=== PATIENT | male | born 1945 | race Caucasian/White ===

== ENCOUNTER → 2016-08-29 | Outpatient (CLI) | payer MEDICARE, BC ==
[~2016-08-29] MED LIST: ALBUTEROL1.25 MG/3 IH; ASPIRIN 32325 MG/TAB PO; ASPIRIN 81M81 MG/TA2 PO; CENTRUM SILVER1 TAB PO; CLARITIN 1010 MG/TAB PO; DEPAKOTE500 MG PO; EFFEXOR 75M75 MG/TAB PO; EXELON13.3TDM; FENTANYL 100MCG TD; FENTANYL 50MCG TD; FLOMAX 0.40.4 MG/CAP PO; GENTLE LAXATIVE5 MG PO; MIRALAX PA17 GM/Dose PO; MULTI VITAMINS1 TAB PO; NAMENDA 10MG TA10 MG PO; PERCOCET 325 MG1 TA2 PO; PRILOSEC 20MG20 MG PO; PROTONIX 40MG T40 MG PO; PROVENTIL0.09 MG/A1 IH; RESTASIS 60VL; RESTASIS 60VL OP; SEROQUEL 2525 MG/TAB PO; TYLENOL 325MG325 MG PO; ULTRAM 50MG TAB50 MG; XANAX 1MG1 MG PO; ZOCOR 40MG40 MG PO
== END ==
LOC: BHSO 16:21
DX: F33.41 Major depressive disorder, recurrent, in partial remission (principal)

== ENCOUNTER → 2016-10-25 | Outpatient (CLI) | payer MEDICARE, BC | LOC: BHSO 14:18 | DX: F33.1 Major depressive disorder, recurrent, moderate (principal) ==

== ENCOUNTER → 2016-12-28 | Outpatient (CLI) | payer MEDICARE, BC | LOC: BHSO 14:41 | DX: F33.1 Major depressive disorder, recurrent, moderate (principal) ==

== ENCOUNTER → 2017-02-09 | Outpatient (REF) ==
[2017-02-09 18:54] LABS: THYROID STIMULATING HORMONE 2.98 uIU/mL (0.465-4.680)
== END ==
LOC: ZLAB.WCH 18:11
PROVIDERS: Family Medicine
DX: Z01.89 Encounter for other specified special examinations (principal)

== ENCOUNTER → 2017-03-29 | Outpatient (CLI) | payer MEDICARE, BC ==
[~2017-03-29] MED LIST changes: +DEPAKOTE 250MG250 MG PO; +DULCOLAX S10 MG/SUPP RC; +DULCOLAX TAB5 MG PO; +EFFEXOR-XR150 MG PO; +PROAIR RES117 MCG/Ac IH; +SEROQUEL XR50 MG PO; +XANAX .25M0.25 MG/TA PO
== END ==
LOC: BHSO 16:00
DX: F31.73 Bipolar disorder, in partial remission, most recent episode manic (principal)

== ENCOUNTER → 2017-09-28 | Outpatient (REF) ==
[2017-09-28 18:40] LABS: VALPROIC ACID (DEPAKENE) 59.4 ug/mL (50.0-100.0)
[2017-09-28 19:16] LABS: THYROID STIMULATING HORMONE 1.97 uIU/mL (0.465-4.680)
== END ==
LOC: ZLAB.WCH 18:11
PROVIDERS: Nurse Practitioner Family
DX: Z01.89 Encounter for other specified special examinations (principal)